=== PATIENT | female | born 1955 | race Caucasian/White ===

== ENCOUNTER 2024-02-13 06:48 | Day surgery (SDC) | payer OTHER, SELFPAY ==
[2024-01-28 06:56] VITALS: BMI 31.4
[2024-01-28 09:46] LABS: Hemoglobin 12.8 g/dL (12.0-16.0); Mean Corp Hgb Conc. 33.7 g/dL (33.0-37.0); Mean Platelet Volume 10.6 fL (7.4-10.4); Platelet Count 418 10^3/uL (130-400); Red Blood Cell Count 4.13 10^6/uL (4.20-5.40); Red Cell Dist. Width 13.1 % (11.5-14.5)
[2024-01-28 10:26] LABS: ALT (SGPT) 23 U/L (0-35); AST (SGOT) 33 U/L (14-36); Albumin 4.3 g/dl (3.5-5.0); Alkaline Phosphatase 87 U/L (38-126); Blood Urea Nitrogen 16 mg/dl (7-17); Calcium 9.2 mg/dl (8.4-10.2); Carbon Dioxide 25 mmol/L (22-30); Chloride 107 mmol/L (98-107); Estimated Creatinine Clearance 54 ml/min; Glucose 93 mg/dl (70-99); Potassium 4.7 mmol/L (3.5-5.1); Sodium 143 mmol/L (135-145); Total Bilirubin 0.5 mg/dl (0.2-1.3); eGFR > 60.00
[2024-02-13 10:01] VITALS: BP 134/77; BMI 31.4
[2024-02-13] MEDS: NORMOSOL-R/PLASMALYTE-A 1000 IV (10:05)
[2024-02-13 12:05] VITALS: BP 115/51; BP 134/77
[2024-02-13 12:15] VITALS: BP 107/56
[2024-02-13 12:54] VITALS: BP 133/69
[2024-02-13 13:10] VITALS: BP 120/64
[2024-02-13 13:29] VITALS: BP 164/90
== END 2024-02-13 13:32 | disposition home or self-care (01) ==
LOC: SDS 06:48
PROVIDERS: ATTENDING PHYSICIAN Otolaryngology; FAMILY PHYSICIAN Family Medicine
DX: H65.91 Unspecified nonsuppurative otitis media, right ear (principal)
CPT/HCPCS: 69436; 36415; 80053; 85027; 93005